=== PATIENT | female | born 1985 | race Caucasian/White ===

== ENCOUNTER 2017-02-17 09:39 | Emergency (ER) | payer MEDICAID ==
[~2017-02-17] VITALS: Ht 154.9 cm; Wt 61.5 kg
[2017-02-17 09:43] VITALS: Ht 154.9 cm; Wt 61.5 kg
[2017-02-17] MEDS ORDERED: KETOROLAC 60 MG INJ IM STA (11:21)
--- NOTE | 2017-02-17 11:23 | ERD ---
ER Documentation Chief Complaint Chief Complaint BACK PAIN SINCE YESTERDAY HPI 31y/o female previously healthy presents to the ED c/o acute onset of lower back pain to days ago, worse on the right side. Pain is sharp, 8/10, worsened by lateral rotation and bending forward. Treatment attempted: None. No recent history of trauma. Denies limb weakness, numbness or incontinence. No urinary symptoms ROS SYSTEMIC symptoms: no fever, chills, no night sweats, no weight loss EYE symptoms: No blurred vision, no eye discharge OTOLARYNGEAL symptoms: No hearing loss. No ear pain, no sore throat CARDIOVASCULAR symptoms: No chest pain or discomfort, no palpitations. PULMONARY symptoms: No dyspnea, no cough, no wheezing. GASTROINTESTINAL symptoms: No abdominal pain, no nausea, no vomiting, no diarrhea MUSCULOSKELETAL symptoms: + arthralgias, + muscle aches. NEUROLOGY symptoms: No confusion, no syncope, no numbness or tingling. SKIN no rashes All systems reviewed and are negative except as per history of present illness. Medications Home Meds Active Scripts Hydrocodone/Acetaminophen ([place] 5-325 Tablet) 1 Each Tablet, 1 TAB PO Q6H Y for PAIN, #12 TAB Prov:SHERIE DAVIDSON MD 02/17/17 Baclofen* (Baclofen*) 10 Mg Tablet, 10 MG PO Q8 for 5 Days, #15 TAB Prov:SHERIE DAVIDSON MD 02/17/17 Ibuprofen* (Motrin*) 600 Mg Tab, 600 MG PO Q8, #30 TAB Prov:SHERIE DAVIDSON MD 02/17/17 Physical Exam Vitals Vital Signs Date Time Temp Pulse Resp B/P Pulse Ox O2 Delivery O2 Flow Rate FiO2 02/17/17 09:43 98.9 81 18 8/59 100 Physical Exam Patient is in no acute distress, vital signs stable. Alert and fully oriented. EYES: PERRLA, EOMI, Sclera and conjunctiva appear normal. EARS: Canals clear, tympanic membranes WNL THROAT: Normal oropharynx. NECK: Supple, No lymphadenopathy. Full ROM without pain or tenderness. HEART: RRR, no rubs, murmurs, clicks or gallops. LUNGS: Clear to auscultation. ABDOMEN: Soft, non-tender without masses or hepatosplenomegaly. EXTREMITIES: No edema bilaterally. Back: Normal inspection, decreased range of motion for lateral rotation. No vertebral tenderness, right lower back spasm noticed Results 24 hrs Current Medications Medications (Trade) Dose Ordered Sig/Guillermo Route PRN Reason Start Time Stop Time Status Last Admin Dose Admin Ketorolac Tromethamine (Toradol) 60 mg ONCE STAT IM 02/17/17 11:21 02/17/17 11:23 DC 02/17/17 11:32 Procedures/MDM Low back pain: no red flags. Differential diagnosis: lumbar sprain/strain, sciatica, herniated disk, UTI less likely pyelo, kidney stone. Neurovascular exam grossly intact. no clinical findings suggestive of acute infetious process , no acute deformity, no edema, no rashes. Most likely muscle sprain. The patient received Toradol IM with improvement of the pain. The patient will be DC home with a Rx for Ibuprofen and [place] prn severe pain. The patient was instructed to follow up with PCP in 2-4 days, if the doctor is unavailable and the symptoms persist or worsen, the patient should return to the hospital immediately. Departure Diagnosis: Primary Impression: Acute lumbar back pain Condition: Stable Additional Instructions: Muchas true por [facility] para askew servicio. Esperamos que en askew visita a la gudelia de emergencia askew problema medico haya sido solucionado y que se sienta mucho mejor. Para estar seguros que askew mejoria sigue en proceso, le pedimos el favor de hacer asa matthew de seguimiento medico con askew doctor primario en los proximos 2-4 arzola. Lleve con usted estos documentos y las medicinas recetadas. Si tressa sintomas empeoran y no puede dav a askew doctor, por favor regrese a gudelia de emergencia. En rusty que usted no tenga un mdico de atencin primaria: Llame al mdico o clnica comunitaria de referencia que aparece abajo eugenio las horas de consultorio para hacer asa matthew para que le vean. CLINICAS: [facility] [phone] [facility] [phone] [facility] [phone] [place] [phone] [facility] [phone] [facility] [phone] SHERIE HARRIS MD Feb 17, 2017 11:23
--- NOTE | 2017-02-17 11:23 | ERD ---
ER Documentation Chief Complaint Chief Complaint BACK PAIN SINCE YESTERDAY HPI 31y/o female previously healthy presents to the ED c/o acute onset of lower back pain to days ago, worse on the right side. Pain is sharp, 8/10, worsened by lateral rotation and bending forward. Treatment attempted: None. No recent history of trauma. Denies limb weakness, numbness or incontinence. No urinary symptoms ROS SYSTEMIC symptoms: no fever, chills, no night sweats, no weight loss EYE symptoms: No blurred vision, no eye discharge OTOLARYNGEAL symptoms: No hearing loss. No ear pain, no sore throat CARDIOVASCULAR symptoms: No chest pain or discomfort, no palpitations. PULMONARY symptoms: No dyspnea, no cough, no wheezing. GASTROINTESTINAL symptoms: No abdominal pain, no nausea, no vomiting, no diarrhea MUSCULOSKELETAL symptoms: + arthralgias, + muscle aches. NEUROLOGY symptoms: No confusion, no syncope, no numbness or tingling. SKIN no rashes All systems reviewed and are negative except as per history of present illness. Medications Home Meds Active Scripts Hydrocodone/Acetaminophen ([place] 5-325 Tablet) 1 Each Tablet, 1 TAB PO Q6H Y for PAIN, #12 TAB Prov:SHERIE DAVIDSON MD 02/17/17 Baclofen* (Baclofen*) 10 Mg Tablet, 10 MG PO Q8 for 5 Days, #15 TAB Prov:SHERIE DAVIDSON MD 02/17/17 Ibuprofen* (Motrin*) 600 Mg Tab, 600 MG PO Q8, #30 TAB Prov:SHERIE DAVIDSON MD 02/17/17 Physical Exam Vitals Vital Signs Date Time Temp Pulse Resp B/P Pulse Ox O2 Delivery O2 Flow Rate FiO2 02/17/17 09:43 98.9 81 18 8/59 100 Physical Exam Patient is in no acute distress, vital signs stable. Alert and fully oriented. EYES: PERRLA, EOMI, Sclera and conjunctiva appear normal. EARS: Canals clear, tympanic membranes WNL THROAT: Normal oropharynx. NECK: Supple, No lymphadenopathy. Full ROM without pain or tenderness. HEART: RRR, no rubs, murmurs, clicks or gallops. LUNGS: Clear to auscultation. ABDOMEN: Soft, non-tender without masses or hepatosplenomegaly. EXTREMITIES: No edema bilaterally. Back: Normal inspection, decreased range of motion for lateral rotation. No vertebral tenderness, right lower back spasm noticed Results 24 hrs Current Medications Medications (Trade) Dose Ordered Sig/Guillermo Route PRN Reason Start Time Stop Time Status Last Admin Dose Admin Ketorolac Tromethamine (Toradol) 60 mg ONCE STAT IM 02/17/17 11:21 02/17/17 11:23 DC 02/17/17 11:32 Procedures/MDM Low back pain: no red flags. Differential diagnosis: lumbar sprain/strain, sciatica, herniated disk, UTI less likely pyelo, kidney stone. Neurovascular exam grossly intact. no clinical findings suggestive of acute infetious process , no acute deformity, no edema, no rashes. Most likely muscle sprain. The patient received Toradol IM with improvement of the pain. The patient will be DC home with a Rx for Ibuprofen and [place] prn severe pain. The patient was instructed to follow up with PCP in 2-4 days, if the doctor is unavailable and the symptoms persist or worsen, the patient should return to the hospital immediately. Departure Diagnosis: Primary Impression: Acute lumbar back pain Condition: Stable Additional Instructions: Muchas true por [facility] para askew servicio. Esperamos que en askew visita a la gudelia de emergencia askew problema medico haya sido solucionado y que se sienta mucho mejor. Para estar seguros que askew mejoria sigue en proceso, le pedimos el favor de hacer asa matthew de seguimiento medico con askew doctor primario en los proximos 2-4 arzola. Lleve con usted estos documentos y las medicinas recetadas. Si tressa sintomas empeoran y no puede dav a askew doctor, por favor regrese a gudelia de emergencia. En rusty que usted no tenga un mdico de atencin primaria: Llame al mdico o clnica comunitaria de referencia que aparece abajo eugenio las horas de consultorio para hacer asa matthew para que le vean. CLINICAS: [facility] [phone] [facility] [phone] [facility] [phone] [address] [place] [phone] [facility] [phone] [facility] [phone] SHERIE HARRIS MD Feb 17, 2017 11:23
--- NOTE | 2017-02-17 11:23 | ERD ---
ER Documentation Chief Complaint Chief Complaint BACK PAIN SINCE YESTERDAY HPI 31y/o female previously healthy presents to the ED c/o acute onset of lower back pain to days ago, worse on the right side. Pain is sharp, 8/10, worsened by lateral rotation and bending forward. Treatment attempted: None. No recent history of trauma. Denies limb weakness, numbness or incontinence. No urinary symptoms ROS SYSTEMIC symptoms: no fever, chills, no night sweats, no weight loss EYE symptoms: No blurred vision, no eye discharge OTOLARYNGEAL symptoms: No hearing loss. No ear pain, no sore throat CARDIOVASCULAR symptoms: No chest pain or discomfort, no palpitations. PULMONARY symptoms: No dyspnea, no cough, no wheezing. GASTROINTESTINAL symptoms: No abdominal pain, no nausea, no vomiting, no diarrhea MUSCULOSKELETAL symptoms: + arthralgias, + muscle aches. NEUROLOGY symptoms: No confusion, no syncope, no numbness or tingling. SKIN no rashes All systems reviewed and are negative except as per history of present illness. Medications Home Meds Active Scripts Hydrocodone/Acetaminophen ([place] 5-325 Tablet) 1 Each Tablet, 1 TAB PO Q6H Y for PAIN, #12 TAB Prov:SHERIE DAVIDSON MD 02/17/17 Baclofen* (Baclofen*) 10 Mg Tablet, 10 MG PO Q8 for 5 Days, #15 TAB Prov:SHERIE DAVIDSON MD 02/17/17 Ibuprofen* (Motrin*) 600 Mg Tab, 600 MG PO Q8, #30 TAB Prov:SHERIE DAVIDSON MD 02/17/17 Physical Exam Vitals Vital Signs Date Time Temp Pulse Resp B/P Pulse Ox O2 Delivery O2 Flow Rate FiO2 02/17/17 09:43 98.9 81 18 8/59 100 Physical Exam Patient is in no acute distress, vital signs stable. Alert and fully oriented. EYES: PERRLA, EOMI, Sclera and conjunctiva appear normal. EARS: Canals clear, tympanic membranes WNL THROAT: Normal oropharynx. NECK: Supple, No lymphadenopathy. Full ROM without pain or tenderness. HEART: RRR, no rubs, murmurs, clicks or gallops. LUNGS: Clear to auscultation. ABDOMEN: Soft, non-tender without masses or hepatosplenomegaly. EXTREMITIES: No edema bilaterally. Back: Normal inspection, decreased range of motion for lateral rotation. No vertebral tenderness, right lower back spasm noticed Results 24 hrs Current Medications Medications (Trade) Dose Ordered Sig/Guillermo Route PRN Reason Start Time Stop Time Status Last Admin Dose Admin Ketorolac Tromethamine (Toradol) 60 mg ONCE STAT IM 02/17/17 11:21 02/17/17 11:23 DC 02/17/17 11:32 Procedures/MDM Low back pain: no red flags. Differential diagnosis: lumbar sprain/strain, sciatica, herniated disk, UTI less likely pyelo, kidney stone. Neurovascular exam grossly intact. no clinical findings suggestive of acute infetious process , no acute deformity, no edema, no rashes. Most likely muscle sprain. The patient received Toradol IM with improvement of the pain. The patient will be DC home with a Rx for Ibuprofen and [place] prn severe pain. The patient was instructed to follow up with PCP in 2-4 days, if the doctor is unavailable and the symptoms persist or worsen, the patient should return to the hospital immediately. Departure Diagnosis: Primary Impression: Acute lumbar back pain Condition: Stable Additional Instructions: Muchas true por [facility] para askew servicio. Esperamos que en askew visita a la gudelia de emergencia askew problema medico haya sido solucionado y que se sienta mucho mejor. Para estar seguros que askew mejoria sigue en proceso, le pedimos el favor de hacer asa matthew de seguimiento medico con askew doctor primario en los proximos 2-4 arzola. Lleve con usted estos documentos y las medicinas recetadas. Si tressa sintomas empeoran y no puede dav a askew doctor, por favor regrese a gudelia de emergencia. En rusty que usted no tenga un mdico de atencin primaria: Llame al mdico o clnica comunitaria de referencia que aparece abajo eugenio las horas de consultorio para hacer asa matthew para que le vean. CLINICAS: [facility] [phone] [facility] [phone] [facility] [phone] [place] [phone] [facility] [phone] [facility] [phone] SHERIE HARRIS MD Feb 17, 2017 11:23
[2017-02-17] MEDS ORDERED: HYDR-906 PO (12:27)
[2017-02-17] MEDS ORDERED: IBUP-1542 PO (12:27)
[2017-02-17] MEDS ORDERED: BACL10TA PO (12:27)
== END 2017-02-17 12:48 | disposition home or self-care (01) ==
LOC: FTE 09:39
DX: M54.5 Low back pain (principal)
CPT/HCPCS: 96372; J1885; Z7502

== ENCOUNTER 2017-06-14 09:11 | Emergency (ER) | END 2017-06-14 10:19 | disposition home or self-care (01) ==